=== PATIENT | female | born 1950 | race Caucasian/White ===

== ENCOUNTER → 2017-01-17 11:06 | Outpatient (CLI) | payer MEDICARE, BC, OTHER ==
[2010-05-09 08:26] VITALS: BMI 24.3
== END | disposition home or self-care (01) ==
LOC: D.CT 11:00
DX: M54.16 Radiculopathy, lumbar region (principal)

== ENCOUNTER 2017-05-03 17:07 | Outpatient (CLI) | payer MEDICARE, BC, OTHER ==
[2010-05-09 08:26] VITALS: BMI 24.3
== END 2017-05-03 17:32 ==
LOC: D.MAMMO 17:07
DX: Z12.31 Encounter for screening mammogram for malignant neoplasm of breast (principal)

== ENCOUNTER 2021-04-29 23:50 | Emergency (ER) | payer MEDICARE, BC, OTHER ==
[~2021-04-29] VITALS: Ht 162.6 cm; Wt 65.9 kg
[2021-04-30 00:02] VITALS: Ht 162.6 cm; Wt 65.9 kg
[2021-04-30] MEDS ORDERED: PRADAXA150 MG PO (00:06)
[2021-04-30] MEDS ORDERED: BETAPACE 120 M120 MG PO (00:06)
[2021-04-30] MEDS ORDERED: COREG6.25 MG (00:07)
[2021-04-30 05:46] VITALS: BP 162/74
== END 2021-04-30 05:47 | disposition home or self-care (01) ==
LOC: D.ER 23:50
DX: I10 Essential (primary) hypertension (principal); I48.91 Unspecified atrial fibrillation